=== PATIENT | male | born 1980 | race Caucasian/White ===

== ENCOUNTER 2018-10-19 18:02 | Emergency (ER) | payer OTHER ==
[2018-10-19 18:10] VITALS: BP 129/94; PULSE 92; RESP 16; TEMP 97.5; O2SAT 100
--- NOTE | 2018-10-19 18:20 | ED PDOC ---
HPI:Nausea, Vomiting, Diarrhea Time Seen by Provider: 10/19/18 18:05 Chief Complaint (Nursing): Abdominal Pain History Per: Patient History/Exam Limitations: no limitations Onset/Duration Of Symptoms: Days (1) Current Symptoms Are (Timing): Still Present Have you had recent travel within the past 21 days to any of the following countries: [place], [place], [place] or [place]?: Yes Other Location:: [place] Context: Travel, Food Severity: Mild Pain Scale Rating Of: 2 Quality Of Discomfort: Cramping Associated Symptoms: Vomiting, Diarrhea Exacerbating Factors: None Alleviating Factors: None Last Bowel Movement: Today Past Medical History Reviewed: Historical Data, Nursing Documentation, Vital Signs Vital Signs: Last Vital Signs Temp 97.5 F L 10/19/18 18:05 Pulse 92 H 10/19/18 18:05 Resp 16 10/19/18 18:05 BP 129/94 H 10/19/18 18:05 Pulse Ox 100 10/19/18 18:05 - Medical History PMH: No Chronic Diseases - Surgical History Surgical History: No Surg Hx - Family History Family History: States: No Known Family Hx - Home Medications Home Medications: Ambulatory Orders Medication Instructions Recorded Ondansetron ODT [Zofran ODT] 4 mg PO Q8 PRN #12 odt 10/19/18 - Allergies Allergies/Adverse Reactions: Allergies Allergy/AdvReac Type Severity Reaction Status Date / Time No Known Allergies Allergy Verified 10/19/18 18:05 Review of Systems ROS Statement: Except As Marked, All Systems Reviewed And Found Negative Physical Exam - Reviewed Nursing Documentation Reviewed: Yes Vital Signs Reviewed: Yes - Physical Exam Appears: Positive for: No Acute Distress Head Exam: Positive for: ATRAUMATIC Skin: Positive for: Normal Color, Warm Eye Exam: Positive for: EOMI ENT: Positive for: Normal ENT Inspection Cardiovascular/Chest: Positive for: Regular Rate, Rhythm Respiratory: Positive for: Normal Breath Sounds. Negative for: Respiratory Distress Gastrointestinal/Abdominal: Positive for: Soft. Negative for: Tenderness Extremity: Positive for: Normal ROM Neurologic/Psych: Positive for: Alert, Oriented - Laboratory Results Result Diagrams: 10/19/18 18:20 10/19/18 18:20 - ECG O2 Sat by Pulse Oximetry: 100 - Progress Re-evaluation Time: 22:17 Condition: Re-examined, Improved Medical Decision Making Medical Decision Making: Impression Vomiting and diarrhea with abdominal pain Diff include acute gastroenteritis, pancreatitis, erika likely gallbladder disease or acute appendicitis. Plan CBC CMP Lipase NS 1 L IV Zofran 4 mg IV reassess Disposition - Clinical Impression Clinical Impression: Vomiting and diarrhea - Patient ED Disposition Is Patient to be Admitted: No Doctor Will See Patient In The: Office Counseled Patient/Family Regarding: Studies Performed, Diagnosis, Need For Followup - Disposition Disposition: Routine/Home Disposition Time: 22:17 Condition: GOOD Additional Instructions: JIGNESH BAÑUELOS, thank you for letting us take care of you today. Your provider was Vero Bennett MD and you were treated for ABD PAIN. The emergency medical care you received today was directed at your acute symptoms. If you were prescribed any medication, please fill it and take as directed. It may take several days for your symptoms to resolve. Return to the Emergency Department if your symptoms worsen, do not improve, or if you have any other problems. Please contact your doctor or call one of the physicians/clinics you have been referred to that are listed on the Patient Visit Information form that is included in your discharge packet. Bring any paperwork you were given at discharge with you along with any medications you are taking to your follow up visit. Our treatment cannot replace ongoing medical care by a primary care provider outside of the emergency department. Thank you for allowing the [facility] team to be part of your care today. If you had an X-Ray or CT scan: A Radiologist will review the ED reading if any change in treatment is needed we will contact you. If you had a blood, urine, or wound culture: It will take several days for the results, if any change in treatment is needed we will contact you. If you had an STI test: It will take 48 hours for the results. Please call after 1 week if you have not heard back. Prescriptions: Ondansetron ODT [Zofran ODT] 4 mg PO Q8 PRN #12 odt PRN Reason: Nausea/Vomiting Instructions: Nausea and Vomiting, Adult, Diarrhea in Adolescents and Adults
[2018-10-19 18:41] LABS: BASO % 0.4 % (0.0-2.0); HEMOGLOBIN 15.9 g/dL (12.0-18.0); LYMPH # 0.6 K/uL (1.0-4.3); LYMPH % 4.6 % (20.0-40.0); MEAN CELL VOLUME 87.8 fl (80.0-94.0); MEAN CORPUSCULAR HEMOGLOBIN 30.4 pg (27.0-31.0); MEAN CORPUSCULAR HGB CONC 34.7 g/dL (33.0-37.0); MEAN PLATELET VOLUME 10.1 fl (7.2-11.7); MONO # 0.5 K/uL (0.0-0.8); MONO % 3.5 % (0.0-10.0); NEUT # 12.5 K/uL (1.8-7.0); NEUT % 91.5 % (50.0-75.0); NRBC % 0.2 % (0.0-0.0); PLATELET COUNT 243 K/uL (130-400); RBC 5.23 Mil/uL (4.40-5.90); RED CELL DISTRIBUTION WIDTH 14.3 % (11.5-14.5); WHITE BLOOD COUNT 13.6 K/uL (4.8-10.8)
[2018-10-19 18:42] LABS: ALB/GLOB RATIO 1.3 (1.0-2.1); ALBUMIN 4.7 g/dL (3.5-5.0); ALT/SGPT 29 U/L (21-72); AST/SGOT 27 U/L (17-59); BLOOD UREA NITROGEN 23 mg/dl (9-20); CALCIUM 9.7 mg/dL (8.4-10.2); GFR NON-AFRICAN AMERICAN > 60; LIPASE 35 U/L (23-300)
[2018-10-19] MEDS ORDERED: Sodium Chloride 0.9% 1,000 ML IV STA ×3 (18:47→20:51)
[2018-10-19 19:16] LABS: BANDS 3 % (0-2); BASOPHIL 1 % (0-2); LYMPHOCYTE 7 % (20-50); MONOCYTE 3 % (0-10); NEUTROPHIL 86 % (42-75); TOTAL CELLS COUNTED 100
[2018-10-19 19:17] LABS: PLATELET ESTIMATE NORMAL (NORMAL)
== END 2018-10-19 22:25 | disposition home or self-care (01) ==
LOC: H.ER 18:02
DX: R11.10 Vomiting, unspecified (principal); R19.7 Diarrhea, unspecified
CPT/HCPCS: 80053; 83690; 85025; 96361; 96374; 96375; 96376; 99284; J1885; J2405; J7030